=== PATIENT | male | born 1940 | race Caucasian/White ===

== ENCOUNTER 2020-04-01 13:59 | Outpatient (RCR) | payer MEDICARE, SELFPAY | END 2020-04-01 23:59 | LOC: IMMUN 13:59 | PROVIDERS: Visit Provider Family Medicine | DX: Z23 Encounter for immunization (principal) | CPT/HCPCS: 0011A; 0012A; 91301 ==

== ENCOUNTER 2021-04-26 23:39 | Emergency (ER) | payer BC, SELFPAY ==
[2021-04-26 23:40] VITALS: BP 181/92; PULSE 64; RESP 18; TEMP 36.4; O2SAT 98; BMI 29.3
--- NOTE | 2021-04-27 00:12 | CT_ITS ---
STUDY: CT BRAIN WITHOUT CONTRAST ENHANCEMENT OF 0041 HOURS ON 04/27/2021 REASON FOR EXAM: 80-year-old male with headaches. RADIATION DOSAGE (If Supplied By Facility): CTDIvol = ( 44.99 ) mGy, DLP = ( 863.60 ) mGycm TECHNIQUE: Transaxial CT imaging of the brain was performed without administration of intravenous contrast material. Individualized dose optimization techniques were used for this CT. COMPARISON: No relevant priors. FINDINGS: Normal soft tissue structures. Normal calvarium without linear or depressed skull fractures or metastatic disease. Normal size ventricles and extra-axial spaces for the patient''s age. Normal white matter tracts of the cerebral hemispheres. Normal basal ganglia and thalami. Normal brainstem. Normal cerebellum. Mild central and cortical atrophy. No intracranial mass lesions or metastatic disease. No subarachnoid hemorrhage. No subdural, epidural, or intracerebral hematoma, hemorrhage, or contusion. There is no intracranial hemorrhage. There are no findings of an acute ischemic infarction. Normal visualized paranasal sinuses. No acute or chronic sinusitis. CT/Brain/Head without Contrast IMPRESSION: 1. Normal examination for age. 2. Mild central and cortical atrophy. 3. No intracranial mass lesions or metastatic disease. 4. No ischemic or hemorrhagic cerebral infarct. 5. No subarachnoid hemorrhage. 6. No subdural, epidural, or intracerebral hematoma, hemorrhage, or contusion. 7. Normal calvarium. 8. No acute or chronic sinusitis. Electronically Signed: Olivier Kumar MD at 1:18 EDT ,
--- NOTE | 2021-04-27 00:14 | EDS_ITS ---
HPI History of Present Illness Chief Complaint: Headache Informant: patient Narrative Narrative: Patient states that he has had some mild frontal headache kind of off and on today. He took aspirin and it went away. But he is checked his blood pressure has been elevated. He states he has had a couple high blood pressures before but has never been on meds for it. Generally he is about 140/80 and sometimes as low as 70. He has no neurologic symptoms. No numbness tingling weakness. No chest pain or dyspnea. At this moment he feels fine. Nothing really makes symptoms worse. The aspirin he took did not take away the headache. He is concerned that his blood pressure is up and he figures he probably needs to be on medications. He is overall healthy. He does not take any routine medications. PFSH PFSH Medical History no medical history Home Medications NK 04/27/21 [History Last Taken Unknown] Allergy/AdvReac Type Severity Reaction Status Date / Time No Known Allergies Allergy Verified 04/26/21 23:43 Social History Smoking Status: Never smoker ROS ROS ED Constitutional Constitutional ED: Denies chills or fever(s) Eyes Eyes: Denies blurry vision, change in vision or diplopia ENT ENT ED: Denies rhinorrhea or sore throat Cardiovascular Cardiovascular: Denies chest pain or palpitations Respiratory/Chest Respiratory/Chest: Denies cough or dyspnea Gastrointestinal Gastrointestinal: Denies nausea or vomiting Musculoskeletal Musculoskeletal: Denies myalgias Integumentary Denies rash Neurologic Neurologic: Reports headache(s); Denies paresthesias or weakness Psychiatric Psychiatric: Denies anxiety or depression Endocrine Endocrinology: Denies polydipsia or polyuria Hematologic/Lymphatic Hematologic/Lymphatic: Denies easy bleeding or easy bruising Allergic/Immunologic Allergic/Immunologic ED: Denies urticaria EXAM Physical Exam Const Vital Signs: 04/26/21 23:40 04/27/21 00:40 04/27/21 01:00 Temperature 97.6 F L Temperature Source Temporal Pulse Rate 64 Respiratory Rate 18 Blood Pressure 181/92 H 139/75 H 156/77 H Blood Pressure Mean 121 96 103 Pulse Ox 98 Oxygen Delivery Method Room Air Positive well nourished and well developed Constitutional Narrative: Patient sitting quietly in a chair. He looks n ontoxic. He carries on normal conversation. General Appearance ED: well developed and NAD; Negative for cyanotic or diaphoretic HEENT Reports normocephalic and moist mucous membranes atraumatic; Negative for tenderness or temporal artery tenderness Face and Sinus: Negative for sinus tenderness Eyes PERRL and EOMs intact bilaterally General Eye ED: Negative for pale conjunctiva Neck no JVD Neck Narrative: No bruit Resp normal respiratory effort and clear to auscultation bilaterally Cardio regular rate, regular rhythm and no murmurs GI non-tender Palpation: soft Back/Spine no CVA tenderness Extremity normal to inspection and full ROM General Extremety ED: Negative for edema or tenderness General Extremity: Negative for edema Neuro oriented x3 Sensorium / Orientation: awake and alert Psych mental status grossly normal Skin Lesions: no lesions Rashes: no rashes MDM MDM MDM Narrative Medical decision making narrative: Patient's electrolytes show no marked abn ormalities. CBC including white count hemoglobin normal. CT scan of the head shows no acute process. Patient is rechecked. His headache is still completely gone. His blood pressure is running 140s over 70s. At this level I do not think he needs acute treatment with antihypertensives. However, he certainly may need some treatment in the future. I think it is appropriate to have him check his blood pressure twice a day for a while and then he will follow-up with his physician with those numbers. They can discus consideration of initiating antihypertensive therapy Lab Data Attestation: I reviewed the patient's lab results. Labs: Laboratory Results - last 24 hr 04/27/21 04/27/21 04/27/21 00:14 00:14 00:30 WBC Cancelled Corrected WBC Cancelled RBC Cancelled Hgb Cancelled Hct Cancelled MCV Cancelled MCH Cancelled MCHC Cancelled RDW Std Deviation Cancelled RDW Coeff of [place] Cancelled Plt Count Cancelled MPV Cancelled Immature Gran % (Auto) Cancelled Neut % (Auto) Cancelled Lymph % (Auto) Cancelled [place] % (Auto) Cancelled Eos % (Auto) Cancelled Baso % (Auto) Cancelled Absolute Neuts (auto) Cancelled Absolute Lymphs (auto) Cancelled Total Counted Cancelled Neutrophils % (Manual) Cancelled Band Neutrophils % Cancelled Lymphocytes % (Manual) Cancelled Monocytes % (Manual) Cancelled Eosinophils % (Manual) Cancelled Basophils % (Manual) Cancelled Metamyelocytes % Cancelled Myelocytes % Cancelled Promyelocytes % Cancelled Blast Cells % Cancelled Plasma Cell % (Manual) Cancelled Other Cells % Cancelled Nucleated RBC % Cancelled Nucleated RBCs/100 WBC Cancelled Differential Comment Cancelled Diff Path Review Cancelled Hypersegmented Neuts Cancelled Atypical Lymphocytes Cancelled Reactive Lymphocytes Cancelled Smudge Cells Cancelled Toxic Granulation Cancelled Toxic Vacuolation Cancelled Dohle Bodies Cancelled [place]s Cancelled Platelet Estimate Cancelled Plt Morphology Comment Cancelled RBC Morphology Cancelled Polychromasia Cancelled Hypochromasia Cancelled Poikilocytosis Cancelled Basophilic Stippling Cancelled Anisocytosis Cancelled Microcytosis Cancelled Macrocytosis Cancelled Spherocytes Cancelled Sickle Cells Cancelled Target Cells Cancelled Tear Drop Cells Cancelled Ovalocytes Cancelled Stomatocytes Cancelled [place] Bodies Cancelled [place] Cells Cancelled Bite Cells Cancelled Crenated Cell Cancelled Acanthocytes (Spur) Cancelled Rouleaux Cancelled Schistocytes Cancelled Sodium Cancelled 142 Potassium Cancelled 4.8 Chloride Cancelled 111 H Carbon Dioxide Cancelled 31.0 Anion Gap Cancelled 0 L BUN Cancelled 15 Creatinine Cancelled 0.84 Estim Creat Clear Calc Cancelled 82.43 Est GFR (MDRD) Af Amer Cancelled 113 Est GFR (MDRD) Non-Af Cancelled 94 BUN/Creatinine Ratio Cancelled 17.9 Glucose Cancelled 100 Calcium Cancelled 9.2 04/27/21 00:30 WBC 7.8 Corrected WBC RBC 4.65 Hgb 13.9 Hct 43.0 MCV 92.5 MCH 29.9 MCHC 32.3 RDW Std Deviation 53.0 H RDW Coeff of [place] 15.7 H Plt Count 504 H MPV 10.4 Immature Gran % (Auto) 1.000 H Neut % (Auto) 62.9 Lymph % (Auto) 22.6 [place] % (Auto) 11.0 H Eos % (Auto) 2.1 Baso % (Auto) 0.4 Absolute Neuts (auto) 4.9 Absolute Lymphs (auto) 1.76 Total Counted Neutrophils % (Manual) Band Neutrophils % Lymphocytes % (Manual) Monocytes % (Manual) Eosinophils % (Manual) Basophils % (Manual) Metamyelocytes % Myelocytes % Promyelocytes % Blast Cells % Plasma Cell % (Manual) Other Cells % Nucleated RBC % 0 Nucleated RBCs/100 WBC Differential Comment Diff Path Review Hypersegmented Neuts Atypical Lymphocytes Reactive Lymphocytes Smudge Cells Toxic Granulation Toxic Vacuolation Dohle Bodies [place]s Platelet Estimate Plt Morphology Comment RBC Morphology Polychromasia Hypochromasia Poikilocytosis Basophilic Stippling Anisocytosis Microcytosis Macrocytosis Spherocytes Sickle Cells Target Cells Tear Drop Cells Ovalocytes Stomatocytes [place] Bodies [place] Cells Bite Cells Crenated Cell Acanthocytes (Spur) Rouleaux Schistocytes Sodium Potassium Chloride Carbon Dioxide Anion Gap BUN Creatinine Estim Creat Clear Calc Est GFR (MDRD) Af Amer Est GFR (MDRD) Non-Af BUN/Creatinine Ratio Glucose Calcium Radiography Diagnostic Testing: Clinical Impression(s) from Imaging Studies Brain CT 04/27/21 00:12 IMPRESSION: 1. Normal examination for age. 2. Mild central and cortical atrophy. 3. No intracranial mass lesions or metastatic disease. 4. No ischemic or hemorrhagic cerebral infarct. 5. No subarachnoid hemorrhage. 6. No subdural, epidural, or intracerebral hematoma, hemorrhage, or contusion. 7. Normal calvarium. 8. No acute or chronic sinusitis. Electronically Signed: Olivier Kumar MD at 1:18 EDT , Discharge Plan Triage Chief Complaint: Headache ED Provider: Theo Muhammad Dx/Rx/DC Orders Clinical Impression: Headache, Elevated blood pressure reading Instructions: Hypertension Dc, ED Headache Unspecified Prescriptions: No Action NK RF: 0 Primary Care Provider: Yohan Simmons Referrals: Yohan Simmons MD [Primary Care Provider] - 3-5 Days Disposition Disposition: Home, Self Care
[2021-04-27 00:40] VITALS: BP 139/75
[2021-04-27 00:49] LABS: Absolute Lymphocyte Count 1.76 X10^3/uL (0.83-4.51); Absolute Neutrophil Count 4.9 X10^3/uL (2.0-7.7); Basophil# 0.03 X10^3/uL; Basophil% 0.4 % (0-1); Eosinophil# 0.16 X10^3/uL; Eosinophils% 2.1 % (0-5); Hemoglobin 13.9 g/dL (13.0-16.5); Lymphocyte # 1.76 X10^3/ul (0.83-4.51); Lymphocyte % 22.6 % (19-41); Mean Corp Hgb Conc 32.3 g/dL (32-36); Mean Corpuscular Hgb 29.9 pg (27.0-32.0); Mean Corpuscular Volume 92.5 fL (80-94); Mean Platelet Vol. 10.4 fl (6.2-12.0); Monocyte# 0.86 X10^3/uL; NRBC Flagged by Analyzer 0 % (0-5); Neutrophil # 4.91 X10^3/uL (2.7-7.7); Neutrophil % 62.9 % (47-70); Platelet Count 504 K/mm3 (150-450); RBC Distribution Width CV 15.7 % (11.6-14.6); Red Blood Count 4.65 M/mm3 (4.6-6.2); White Blood Count 7.8 K/mm3 (4.4-11.0)
[2021-04-27 01:00] VITALS: BP 156/77
[2021-04-27 01:05] LABS: Anion Gap 0 (5-15); BUN 15 mg/dL (7-18); BUN/Creat Ratio 17.9 RATIO (10-20); Calcium,Total 9.2 mg/dL (8.5-10.1); Chloride 111 mmol/L (98-107); Creatinine, Serum 0.84 mg/dL (0.70-1.30); EST Glomerular Filtration Rate 94 mL/min (>60); Est Glom Filt Rate - Afr Amer 113 mL/min (>60); Estimated Creatinine Clearance 82.43 ml/min; Glucose 100 mg/dL (74-106); Potassium 4.8 mmol/L (3.5-5.1); Sodium Level 142 mmol/L (136-145)
[2021-04-27 01:56] VITALS: BP 155/78; PULSE 60; RESP 15; O2SAT 98
== END 2021-04-27 02:04 | disposition home or self-care (01) ==
PROVIDERS: Emergency Provider Emergency Medicine; Visit Provider Emergency Medicine
DX: R51.9 Headache, unspecified (principal); R03.0 Elevated blood-pressure reading, without diagnosis of hypertension
CPT/HCPCS: 70450; 80048; 85025; 99283